=== PATIENT | female | born 2000 | race Caucasian/White ===

== ENCOUNTER 2021-02-07 15:38 | Emergency (ER) | payer OTHER ==
[~2021-02-07] VITALS: Ht 162.6 cm; Wt 70.3 kg
[2021-02-07] MEDS ORDERED: PREDNISONE 20 MG TAB PO NR (15:42)
[2021-02-07] MEDS ORDERED: FAMOTIDINE 20 MG TAB PO STA (15:42)
[2021-02-07] MEDS ORDERED: DIPHENHYDRAMINE HCL 25 MG CAP PO NR (15:45)
[2021-02-07] MEDS ORDERED: FAMOTIDINE 20 MG TAB ONE (15:56)
[2021-02-07] MEDS ORDERED: PREDNISONE 20 MG TAB ONE (15:56)
[2021-02-07] MEDS ORDERED: EPINEPHRIN0.15 MG/01 IM (16:34)
[2021-02-07] MEDS ORDERED: PREDNISONE20 MG PO (16:34)
[2021-02-07 16:45] VITALS: BP 112/76
== END 2021-02-07 16:46 | disposition home or self-care (01) ==
LOC: ER 16:19
DX: L50.9 Urticaria, unspecified (principal)
CPT/HCPCS: 99282; J7512